=== PATIENT | male | born 1950 | race African-American/Black ===

== ENCOUNTER 2017-10-28 13:46 | Inpatient (IN) | payer OTHER ==
[~2017-10-28] VITALS: Ht 170.2 cm; Wt 83.9 kg
[2017-11-01] MEDS ORDERED: TOPROL XL50 M1 PO (18:49)
[2017-11-01] MEDS ORDERED: ELIQUIS5 MG PO (18:49)
[2017-11-01] MEDS ORDERED: ISOSORBIDE DINI20 MG PO (18:49)
[2017-11-01] MEDS ORDERED: LIPITOR20 MG PO (18:49)
== END 2017-11-01 19:18 | DRG 310 ==
LOC: ER 13:46 → MEDI 10-29 14:25 → SURG 10-29 14:25
PROC: B246ZZZ Ultrasonography of Right and Left Heart (ICD-10-PCS; 2017-10-29)
PROC: 4A12X4Z Monitoring of Cardiac Electrical Activity, External Approach (ICD-10-PCS; principal; 2017-10-30)
DX: I48.3 Typical atrial flutter (principal); R55 Syncope and collapse; I42.6 Alcoholic cardiomyopathy